=== PATIENT | male | born 2005 | race Caucasian/White ===

== ENCOUNTER 2024-10-30 01:23 | Emergency (ER) | payer OTHER ==
[~2024-10-30] VITALS: Ht 182.9 cm; Wt 69.0 kg
[2024-10-30 01:33] VITALS: O2SAT 98
[2024-10-30] MEDS: KETOROLAC 15MG/ML VIAL IM ONE (01:51)
[2024-10-30] MEDS ORDERED: NAPR-1176 MT (02:21)
[2024-10-30] MEDS ORDERED: OFLO5DRO4 LEFT EAR (02:21)
[2024-10-30 02:49] VITALS: BP 118/73; PULSE 62; RESP 16; TEMP 36.5; O2SAT 96
== END 2024-10-30 02:51 | disposition home or self-care (01) ==
LOC: ER 01:23
DX: H60.92 Unspecified otitis externa, left ear (principal); H10.89 Other conjunctivitis; Z79.1 Long term (current) use of non-steroidal anti-inflammatories (NSAID); Z79.899 Other long term (current) drug therapy; Z88.0 Allergy status to penicillin
CPT/HCPCS: 99283; 96372; J1885